=== PATIENT | female | born 1960 | race Caucasian/White ===

== ENCOUNTER 2016-10-04 10:29 | Emergency (ER) | payer OTHER ==
[~2016-10-04] VITALS: Ht 175.3 cm; Wt 98.4 kg
[2016-10-04 10:40] VITALS: BP 137/73
[2016-10-04] MEDS ORDERED: HYDROCODONE/APAP 5/325MG 1 EACH TABLET ONE (12:11)
[2016-10-04] MEDS ORDERED: HYDROCODONE/APAP 5/325MG 1 EACH TABLET PO ONE (12:30)
== END 2016-10-04 12:34 | disposition home or self-care (01) ==
LOC: ER 10:31
DX: S82.832A Other fracture of upper and lower end of left fibula, initial encounter for closed fracture (principal); I10 Essential (primary) hypertension; Z98.51 Tubal ligation status; Z88.8 Allergy status to other drugs, medicaments and biological substances; X58.XXXA Exposure to other specified factors, initial encounter; Y93.I9 Activity, other involving external motion; Y92.480 Sidewalk as the place of occurrence of the external cause; Y99.8 Other external cause status
CPT/HCPCS: 73610-TC